=== PATIENT | male | born 1945 | race Caucasian/White ===

== ENCOUNTER 2023-01-17 21:49 | Emergency (ER) | payer OTHER ==
[2023-01-17] MEDS ORDERED: BUPIVACAINE 0.5% PF 10 ML VIAL ONE (22:16)
[2023-01-17] MEDS ORDERED: AMLODIPINE 10 MG TAB ONE (22:16)
[2023-01-17] MEDS ORDERED: LIDOCAINE 1% 20 ML MDV ONE (22:17)
--- NOTE | 2023-01-17 22:51 | RAD REPORT ---
EXAM DESCRIPTION: CT - [id number] - 01/17/2023 10:41 pm CLINICAL HISTORY: Trauma, head and neck injury. TRAUMA COMPARISON: No comparisons TECHNIQUE: Axial 5 mm thick images of the head were obtained. Axial 2 mm thick images of the cervical spine were obtained with sagittal and coronal reconstruction images generated and reviewed. All CT scans are performed using dose optimization technique as appropriate and may include automated exposure control or mA/KV adjustment according to patient size. FINDINGS: CT HEAD WITHOUT CONTRAST: No acute hemorrhage, hydrocephalus or extra-axial collection is identified.No areas of brain edema or midline shift. Chronic small vessel ischemic changes which are mild to moderate. The paranasal sinuses and mastoids are clear.The calvarium is intact. CT CERVICAL SPINE WITHOUT CONTRAST: No fracture or subluxation.No prevertebral soft tissues swelling is identified. Multilevel degenerati ve changes are present in the spine. Varying degrees of neural foraminal narrowing noted. IMPRESSION: No acute intracranial or cervical spine findings.
--- NOTE | 2023-01-18 00:35 | ER ---
Nurse's Notes [facility] Name: Salvador Dorado Jr Age: 77 yrs Sex: Male : 1945 Arrival Date: 01/17/2023 Time: 21:49 Bed 4 Private MD: Diagnosis: Fall on same level from slipping, tripping and stumbling with subsequent striking against object;Unspecified injury of head, initial encounter;Laceration without foreign body of other part of head Presentation: 01/17 22:10 Chief complaint: Patient states: I was bending over to pick something up and kept vc1 going. I hit my head on the edge of the concrete. Coronavirus screen: Vaccine status: Patient reports receiving the 2nd dose of the covid vaccine. Moderna Client denies travel out of the [place] in the last 14 days. At this time, the client does not indicate any symptoms associated with coronavirus-19. Ebola Screen: Patient negative for fever greater than or equal to 101.5 degrees Fahrenheit, and additional compatible Ebola Virus Disease symptoms Patient denies exposure to infectious person. Patient denies travel to an Ebola-affected area in the 21 days before illness onset. No symptoms or risks identified at this time. Initial Sepsis Screen: Does the patient meet any 2 criteria? No. Patient's initial sepsis screen is negative. Does the patient have a suspected source of infection? No. Patient's initial sepsis screen is negative. Risk Assessment: Do you want to hurt yourself or someone else? Patient reports no desire to harm self or others. Onset of symptoms was January 17, 2023. Care prior to arrival: None. Activity prior to arrival: None. Mechanism of Injury: Fall bending over and kept going. Transition of care: patient was not received from another setting of care. 22:10 Method Of Arrival: Ambulatory vc1 22:10 Acuity: IRA 2 vc1 Triage Assessment: 22:14 General: Appears in no apparent distress. uncomfortable, Behavior is calm, cooperative, vc1 appropriate for age. Pain: Complains of pain in right side of forehead Pain does not radiate. Pain currently is 3 out of 10 on a pain scale. Noted to be grimacing. EENT: No deficits noted. No signs and/or symptoms were reported regarding the EENT system. Neuro: Level of Consciousness is awake, alert, obeys commands, Oriented to person, place, time, situation, Appropriate for age. Cardiovascular: No deficits noted. Respiratory: Airway is patent Respiratory effort is even, unlabored, Respiratory pattern is regular, symmetrical. GI: No deficits noted. No signs and/or symptoms were reported involving the gastrointestinal system. : No deficits noted. No signs and/or symptoms were reported regarding the genitourinary system. Derm: Wound noted right side of forehead. Musculoskeletal: No deficits noted. No signs and/or symptoms reported regarding the musculoskeletal system. Injury Description: Laceration sustained to right side of forehead is contaminated, jagged, 2.6 to 7.5 cm long, not bleeding. Historical: - Allergies: 22:12 Demerol; vc1 22:12 Celebrex; vc1 22:12 Codeine; vc1 - Home Meds: 22:12 amlodipine oral [Active]; vc1 - PMHx: 22:12 Hypertensive disorder; vc1 - PSHx: 22:12 None; vc1 - Immunization history:: Client reports receiving the 2nd dose of the Covid vaccine, Last tetanus immunization: up to date. - Social history:: Smoking status: Patient denies any tobacco usage or history of. Screenin:15 Abuse screen: Denies threats or abuse. Nutritional screening: No deficits noted. vc1 Tuberculosis screening: No symptoms or risk factors identified. 22:30 [facility] ED Fall Risk Assessment (Adult) History of falling in the last 3 months, jw7 including since admission Yes- single mechanical fall (1 pt) Confusion or Disorientation No (0 pts) Intoxicated or Sedated No (0 pts) Impaired Gait Yes (1 pt) Mobility Assist Device Used No (0 pt) Altered Elimination No (0 pt) Score/Fall Risk Level 0 - 2 = Low Risk Oriented to surroundings, Maintained a safe environment, Educated pt \T\ family on fall prevention, incl call for assistance when getting out of bed, Provided non-skid footwear. Assessment: 22:15 General: see triage assessment . jw7 23:30 Reassessment: Patient appears in no apparent distress at this time. No changes from jw7 previously documented assessment. Patient and/or family updated on plan of care and expected duration. Pain level reassessed. Patient is alert, oriented x 3, equal unlabored respirations, skin warm/dry/pink. 11/22 00:27 Reassessment: Patient appears in no apparent distress at this time. No changes from jw7 previously documented assessment. Patient and/or family updated on plan of care and expected duration. Pain level reassessed. Patient is alert, oriented x 3, equal unlabored respirations, skin warm/dry/pink. Vital Signs: 01/17 22:10 BP 206 / 99; Pulse 78; Resp 18; Pulse Ox 99% ; Weight 93.89 kg; Height 5 ft. 9 in. ; vc1 Pain 3/10; 22:59 BP 165 / 83; Pulse 64; Resp 18 S; Pulse Ox 99% on R/A; jw7 01/18 00:00 BP 154 / 89; Pulse 66; Resp 18 S; Pulse Ox 98% on R/A; jw7 01:02 BP 156 / 81; Pulse 63; Resp 17 S; Pulse Ox 99% on R/A; jw7 01/17 22:10 Body Mass Index 30.57 (93.89 kg, 175.26 cm) vc1 01/17 22:10 Pain Scale: Adult vc1 [place] Coma Score: 01/17 21:57 Eye Response: spontaneous(4). Motor Response: obeys commands(6). Verbal Response: snw oriented(5). Total: 15. 01/18 00:36 Eye Response: spontaneous(4). Motor Response: obeys commands(6). Verbal Response: snw oriented(5). Total: 15. ED Course: 01/17 21:55 Patient arrived in ED. snw 21:55 Bulmaro Vargas MD is Attending Physician. snw 21:55 Umm Raman FNP-C is [facility]. snw 22:12 Triage completed. vc1 22:14 Arm band placed on left wrist. vc1 22:15 Patient has correct armband on for positive identification. Bed in low position. Call vc1 light in reach. Pulse ox on. NIBP on. 22:41 CT Head C Spine In Process Unspecified. EDMS 01/18 00:23 Assist provider with laceration repair on forehead that was between 7.6 to 12.5 cm jw7 using sutures. Set up tray. Performed by Umm RAY Patient tolerated well. 01:03 Provided Education on: suture care. jw7 01:03 Patient did not have IV access during this emergency room visit. jw7 Administered Medications: 01/17 22:09 Drug: amLODIPine PO 10 mg PO once Route: PO; vc1 01/18 01:02 Follow up: Response: No adverse reaction jw7 00:38 Drug: Lidocaine Infiltration (1 %) 20 ml 20 ml Infiltration once; to bedside Volume: 20 jw7 ml; Route: Infiltration; 01:01 Follow up: Response: No adverse reaction jw7 00:38 Drug: Bupivacaine Infiltration (0.25 %) 10 ml Infiltration once Route: Infiltration; jw7 01:01 Follow up: Response: No adverse reaction jw7 00:38 Drug: Hibiclens Topical Liquid 4 % 1 application Topical once Route: Topical; Site: jw7 affected area; 01:02 Follow up: Response: No adverse reaction jw7 01:01 Drug: Boostrix Tdap IM 0.5 ml IM once; as a single dose Route: IM; Site: left deltoid; jw7 01:02 Follow up: Response: No adverse reaction jw7 01:01 Drug: Mupirocin Topical Ointment 2 % 1 application Topical once; left knee and forehead jw7 Route: Topical; Site: affected area; 01:02 Follow up: Response: No adverse reaction jw7 Medication: 01/17 22:15 VIS not applicable for this client. vc1 Outcome: 01/18 00:34 Discharge ordered by MD. morales 01:14 Discharged to home ambulatory, with family, jw7 01:14 Condition: stable 01:14 Discharge instructions given to patient, Instructed on discharge instructions, follow up and referral plans. medication usage, Demonstrated understanding of instructions, follow-up care, medications, Prescriptions given X 1, 01:14 Patient left the ED. jw7 Signatures: Dispatcher [employer] EDMS Umm Raman FNP-C FRAME TABLE OPERATOR-Csnw Tia Cartagena RN RN vc1 Marybel Jamil RN RN jw7
--- NOTE | 2023-01-18 00:35 | EDPHYS ---
Physician Documentation [facility] Name: Salvador Dorado Jr Age: 77 yrs Sex: Male : 1945 Arrival Date: 01/17/2023 Time: 21:49 Bed 4 Private MD: ED Physician Bulmaro Vargas HPI: 01/17 21:57 This 77 yrs old Male presents to ER via Unassigned with complaints of fall, face snw laceration. 21:57 The patient or guardian reports injury, a laceration, 6 cm(s), dirty, vertical. The snw complaints affect the right side of forehead. Context of injury: The problem was sustained outdoors, on a street or driveway, resulted from pt states he bent over and kept going, fell to face on side of concrete sidewalk. no LOC. Onset: The symptoms/episode began/occurred suddenly, just prior to arrival. It is unknown whether or not the patient has had similar symptoms in the past. Sees Dr. Lundy, denies taking blood thinners. Historical: - Allergies: 22:12 Demerol; vc1 22:12 Celebrex; vc1 22:12 Codeine; vc1 - Home Meds: 22:12 amlodipine oral [Active]; vc1 - PMHx: 22:12 Hypertensive disorder; vc1 - PSHx: 22:12 None; vc1 - Immunization history:: Client reports receiving the 2nd dose of the Covid vaccine, Last tetanus immunization: up to date. - Social history:: Smoking status: Patient denies any tobacco usage or history of. ROS: 21:57 Constitutional: Negative for fever, chills, and weight loss, Eyes: Negative for injury, snw pain, redness, and discharge, ENT: Negative for injury, pain, and discharge, Neck: Negative for injury, pain, and swelling, Cardiovascular: Negative for chest pain, palpitations, and edema, Respiratory: Negative for shortness of breath, cough, wheezing, and pleuritic chest pain, Abdomen/GI: Negative for abdominal pain, nausea, vomiting, diarrhea, and constipation, Back: Negative for injury and pain, : Negative for injury, bleeding, discharge, and swelling, MS/Extremity: Negative for injury and deformity, 21:57 Psych: Negative for depression, anxiety, suicide ideation, homicidal ideation, and hallucinations, 21:57 Skin: Positive for laceration(s), of the right side of forehead, 21:57 Neuro: Positive for fall, facial laceration, Exam: 22:01 Constitutional: This is a well developed, well nourished patient who is awake, alert, snw and in no acute distress. Eyes: Pupils equal round and reactive to light, extra-ocular motions intact. Lids and lashes normal. Conjunctiva and sclera are non-icteric and not injected. Cornea within normal limits. Periorbital areas with no swelling, redness, or edema. ENT: Nares patent. No nasal discharge, no septal abnormalities noted. Tympanic membranes are normal and external auditory canals are clear. Oropharynx with no redness, swelling, or masses, exudates, or evidence of obstruction, uvula midline. Mucous membranes moist. Neck: Trachea midline, no thyromegaly or masses palpated, and no cervical lymphadenopathy. Supple, full range of motion without nuchal rigidity, or vertebral point tenderness. No Meningismus. Chest/axilla: Normal chest wall appearance and motion. Nontender with no deformity. No lesions are appreciated. Cardiovascular: Regular rate and rhythm with a normal S1 and S2. No gallops, murmurs, or rubs. Normal PMI, no JVD. No pulse deficits. Respiratory: Lungs have equal breath sounds bilaterally, clear to auscultation and percussion. No rales, rhonchi or wheezes noted. No increased work of breathing, no retractions or nasal flaring. Abdomen/GI: Soft, non-tender, with normal bowel sounds. No distension or tympany. No guarding or rebound. No evidence of tenderness throughout. Back: No spinal tenderness. No costovertebral tenderness. Full range of motion. Skin: Warm, dry with normal turgor. Normal color with no rashes, no lesions, and no evidence of cellulitis. MS/ Extremity: Pulses equal, no cyanosis. Neurovascular intact. Full, normal range of motion. Neuro: Awake and alert, GCS 15, oriented to person, place, time, and situation. Cranial nerves II-XII grossly intact. Motor strength 5/5 in all extremities. Sensory grossly intact. Cerebellar exam normal. Normal gait. Psych: Awake, alert, with orientation to person, place and time. Behavior, mood, and affect are within normal limits. 22:01 Head/face: Noted is a laceration(s), that is deep, 6 cm(s), of the right side of forehead, Vital Signs: 22:10 BP 206 / 99; Pulse 78; Resp 18; Pulse Ox 99% ; Weight 93.89 kg; Height 5 ft. 9 in. ; vc1 Pain 3/10; 22:59 BP 165 / 83; Pulse 64; Resp 18 S; Pulse Ox 99% on R/A; jw7 01/18 00:00 BP 154 / 89; Pulse 66; Resp 18 S; Pulse Ox 98% on R/A; jw7 01:02 BP 156 / 81; Pulse 63; Resp 17 S; Pulse Ox 99% on R/A; jw7 01/17 22:10 Body Mass Index 30.57 (93.89 kg, 175.26 cm) vc1 01/17 22:10 Pain Scale: Adult vc1 [place] Coma Score: 01/17 21:57 Eye Response: spontaneous(4). Motor Response: obeys commands(6). Verbal Response: snw oriented(5). Total: 15. 01/18 00:36 Eye Response: spontaneous(4). Motor Response: obeys commands(6). Verbal Response: snw oriented(5). Total: 15. Laceration: 01/17 22:01 Wound Repair of 6cm ( 2.4in ) partial thickness laceration to right side of forehead. snw Linear shaped.. vertical. Distal neuro/vascular/tendon intact. Anesthesia: 5 mls of 0.25% marcaine, Local anesthetic administered with 5 mls of 1% lidocaine. Wound prep: Extensive cleansing with hibiclenz. Skin closed with 6-0 Chromic using simple sutures and sterile technique. Skin closed with 20 6-0 Prolene using simple sutures and sterile technique. Dressed with non-adherent dressing. Patient tolerated well. MDM: 21:55 Patient medically screened. snw 01/18 00:36 Differential diagnosis: Contusion of Hematoma on Laceration of Intracranial bleed- snw Concussion. Data reviewed: vital signs, nurses notes, radiologic studies, CT scan. I considered the following discharge prescriptions or medication management in the emergency department Medications were administered in the Emergency Department. See MAR. Counseling: I had a detailed discussion with the patient and/or guardian regarding the historical points, exam findings, and any diagnostic results supporting the discharge/admit diagnosis, radiology results, the need for outpatient follow up, for definitive care, to return to the emergency department if symptoms worsen or persist or if there are any questions or concerns that arise at home. Response to treatment: the patient's symptoms have markedly improved after treatment. Special discussion: I have referred the patient to see his PCP for further evaluation of high blood pressure. Based on the patient's history, exam and DX evaluation, there is no indication for emergent intervention or inpatient TX. It is understood by the patient/guardian that if the SXs persist or worsen they need to return immediately for re-evaluation. Based on the history and exam findings, there is no indication for further emergent testing or inpatient evaluation. I discussed with the patient/guardian the need to see the primary care provider for further evaluation of the symptoms. 01/17 21:57 Order name: CT Head C Spine; Complete Time: 23:48 snw 01/17 23:48 Interpretation: No acute disease. snw Administered Medications: 01/17 22:09 Drug: amLODIPine PO 10 mg PO once Route: PO; vc1 01/18 01:02 Follow up: Response: No adverse reaction jw7 00:38 Drug: Lidocaine Infiltration (1 %) 20 ml 20 ml Infiltration once; to bedside Volume: 20 jw7 ml; Route: Infiltration; 01:01 Follow up: Response: No adverse reaction jw7 00:38 Drug: Bupivacaine Infiltration (0.25 %) 10 ml Infiltration once Route: Infiltration; jw7 01:01 Follow up: Response: No adverse reaction jw7 00:38 Drug: Hibiclens Topical Liquid 4 % 1 application Topical once Route: Topical; Site: jw7 affected area; 01:02 Follow up: Response: No adverse reaction jw7 01:01 Drug: Boostrix Tdap IM 0.5 ml IM once; as a single dose Route: IM; Site: left deltoid; jw7 01:02 Follow up: Response: No adverse reaction jw7 01:01 Drug: Mupirocin Topical Ointment 2 % 1 application Topical once; left knee and forehead jw7 Route: Topical; Site: affected area; :02 Follow up: Response: No adverse reaction jw7 Disposition: 03:22 Co-signature as Attending Physician, Bulmaro Vargas MD I agree with the assessment sp4 and plan of care. I reviewed the patient's care provided by the Advanced Practice Provider and agree with the diagnosis and treatment plan. Disposition Summary: 01/18/23 00:34 Discharge Ordered Notes: Location: Home snw Condition: Stable snw Diagnosis - Fall on same level from slipping, tripping and stumbling with subsequent striking snw against object - Unspecified injury of head, initial encounter snw - Laceration without foreign body of other part of head snw Followup: snw - With: Emergency Department - When: 1 week - Reason: Staple/Suture removal Followup: snw - With: Private Physician - When: 10 - 14 days - Reason: Recheck today's complaints, Continuance of care, Re-evaluation by your physician Discharge Instructions: - Discharge Summary Sheet snw - Facial or Scalp Contusion snw - Head Injury, Adult snw - Fall Prevention in the Home, Adult snw - Facial Laceration snw Forms: - Medication Reconciliation Form snw - Thank You Letter snw - Antibiotic Education snw - Prescription Opioid Use snw - Patient Portal Instructions snw - Leadership Thank You Letter snw Prescriptions: - Mobic 7.5 mg Oral tablet - take 1 tablet ORAL route once daily As needed take with food; 8 tablet; snw Refills: 0, Product Selection Permitted Signatures: Dispatcher [employer] EDMS Umm Raman FNP-C [place]-Csnw Tia Cartagena RN RN vc1 Marybel Jamil RN RN jw7 Bulmaro Vargas MD MD sp4 Corrections: (The following items were deleted from the chart) 00:33 01/17 22:01 Wound Repair of 6cm ( 2.4in ) partial thickness laceration to right side of snw forehead. Linear shaped.. vertical. Distal neuro/vascular/tendon intact. Anesthesia: 5 mls of 0.25% marcaine, Local anesthetic administered with 5 mls of 1% lidocaine. Wound prep: Extensive cleansing with hibiclenz. Skin closed with 6-0 Prolene using running sutures and sterile technique. Dressed with non-adherent dressing. Patient tolerated well. snw
[2023-01-18] MEDS ORDERED: TDAP (DIPHTH,PERTUSS(ACELL),TET VAC) 0.5 ML VIAL IMVAC ONE (00:50)
[2023-01-18] MEDS ORDERED: MUPIROCIN 2% OINT 22GM TUBE TOP ONE (00:53)
[2023-01-18 01:31] VITALS: BP 156/81; O2SAT 99
== END 2023-01-18 01:14 | disposition home or self-care (01) ==
LOC: ER 21:49
PROC: 0HQ1XZZ Repair Face Skin, External Approach (ICD-10-PCS; principal; 2023-01-18)
DX: S01.81XA Laceration without foreign body of other part of head, initial encounter (principal); W01.10XA Fall on same level from slipping, tripping and stumbling with subsequent striking against unspecified object, initial encounter; Z88.5 Allergy status to narcotic agent; Z88.8 Allergy status to other drugs, medicaments and biological substances
CPT/HCPCS: 70450; 72125; 96372; 99284; 12014; J2001

== ENCOUNTER 2023-01-23 17:35 | Emergency (ER) | payer OTHER ==
--- NOTE | 2023-01-23 18:11 | EDPHYS ---
Physician Documentation [facility] Name: Salvador Dorado Jr Age: 77 yrs Sex: Male : 1945 Arrival Date: 01/23/2023 Time: 17:35 Bed 30 Private MD: Mark Lundy C ED Physician Gabe Vaca HPI: 01/23 18:13 This 77 yrs old Male presents to ER via Ambulatory with complaints of Suture Removal. snw 18:13 The patient has sutures on the right side of forehead. Previous treatment: The patient snw was initially treated the care was rendered at [facility], Treatment type: The patient's original treatment included oral antibiotics, sutures, Outpatient prescription(s): The patient was given prescription(s) for Previous recheck: the patient has not been checked since the original treatment, 20 sutures removed. Sutures/genevieve progress: The patient has no c/o's. The wound is well-healing with no redness, swelling, discharge, or dehiscence reported. The patient has not experienced similar symptoms in the past. The patient has not recently seen a physician. Historical: - Allergies: 17:45 Celebrex; mb9 17:45 Codeine; mb9 17:45 Demerol; mb9 - Home Meds: 17:45 amlodipine oral [Active]; mb9 - PMHx: 17:45 Hypertensive disorder; mb9 - PSHx: 17:45 None; mb9 - Immunization history:: Adult Immunizations up to date. - Social history:: Smoking status: Patient denies any tobacco usage or history of. ROS: 18:11 Constitutional: Negative for fever, chills, and weight loss, Eyes: Negative for injury, snw pain, redness, and discharge, ENT: Negative for injury, pain, and discharge, Neck: Negative for injury, pain, and swelling, Cardiovascular: Negative for chest pain, palpitations, and edema, Respiratory: Negative for shortness of breath, cough, wheezing, and pleuritic chest pain, Abdomen/GI: Negative for abdominal pain, nausea, vomiting, diarrhea, and constipation, Back: Negative for injury and pain, : Negative for injury, bleeding, discharge, and swelling, MS/Extremity: Negative for injury and deformity, Neuro: Negative for headache, weakness, numbness, tingling, and seizure, Psych: Negative for depression, anxiety, suicide ideation, homicidal ideation, and hallucinations, 18:11 Skin: Positive for 20 sutures to vertical forehead laceration need removal, Exam: 18:11 Constitutional: This is a well developed, well nourished patient who is awake, alert, snw and in no acute distress. Eyes: Pupils equal round and reactive to light, extra-ocular motions intact. Lids and lashes normal. Conjunctiva and sclera are non-icteric and not injected. Cornea within normal limits. Periorbital areas with no swelling, redness, or edema. ENT: Nares patent. No nasal discharge, no septal abnormalities noted. Tympanic membranes are normal and external auditory canals are clear. Oropharynx with no redness, swelling, or masses, exudates, or evidence of obstruction, uvula midline. Mucous membranes moist. Neck: Trachea midline, no thyromegaly or masses palpated, and no cervical lymphadenopathy. Supple, full range of motion without nuchal rigidity, or vertebral point tenderness. No Meningismus. Chest/axilla: Normal chest wall appearance and motion. Nontender with no deformity. No lesions are appreciated. Cardiovascular: Regular rate and rhythm with a normal S1 and S2. No gallops, murmurs, or rubs. Normal PMI, no JVD. No pulse deficits. Respiratory: Lungs have equal breath sounds bilaterally, clear to auscultation and percussion. No rales, rhonchi or wheezes noted. No increased work of breathing, no retractions or nasal flaring. Abdomen/GI: Soft, non-tender, with normal bowel sounds. No distension or tympany. No guarding or rebound. No evidence of tenderness throughout. Back: No spinal tenderness. No costovertebral tenderness. Full range of motion. MS/ Extremity: Pulses equal, no cyanosis. Neurovascular intact. Full, normal range of motion. Neuro: Awake and alert, GCS 15, oriented to person, place, time, and situation. Cranial nerves II-XII grossly intact. Motor strength 5/5 in all extremities. Sensory grossly intact. Cerebellar exam normal. Normal gait. Psych: Awake, alert, with orientation to person, place and time. Behavior, mood, and affect are within normal limits. 18:11 Head/face: Noted is sutured wound well approximated, no evidence of infection. 18:11 Skin: Appearance: ecchymosis, that are mild, of the right lower eyelid and left lower eyelid, s/p head injury, resolving, Vital Signs: 17:46 BP 150 / 84; Pulse 84; Resp 18; Temp 98.2; Pulse Ox 100% ; Weight 95 kg; Height 5 ft. 9 mb9 in. ; 17:46 Body Mass Index 30.93 (95.00 kg, 175.26 cm) mb9 Procedures: 18:10 Foreign Body Removal: 20 6-0 sutures removed, pt tolerated well. snw MDM: 17:44 Patient medically screened. snw 18:10 Data reviewed: vital signs, nurses notes. Counseling: I had a detailed discussion with snw the patient and/or guardian regarding the historical points, exam findings, and any diagnostic results supporting the discharge/admit diagnosis, the need for outpatient follow up, for definitive care, to return to the emergency department if symptoms worsen or persist or if there are any questions or concerns that arise at home. Special discussion: Based on the history and exam findings, there is no indication for further emergent testing or inpatient evaluation. I discussed with the patient/guardian the need to see the primary care provider for further evaluation of the symptoms. Administered Medications: No medications were administered Disposition: 18:16 I was immediately available on-site in the Emergency Department for consultation in the ms3 care of the patient. Disposition Summary: 01/23/23 18:10 Discharge Ordered Notes: Location: Home snw Condition: Stable snw Diagnosis - Encounter for removal of sutures snw Followup: snw - With: Emergency Department - When: As needed - Reason: Worsening of condition Followup: snw - With: Mark Lundy MD - When: As needed - Reason: Recheck today's complaints, Continuance of care, Re-evaluation by your physician Discharge Instructions: - Discharge Summary Sheet snw - Nonsutured Laceration Care snw - Suture Removal, Care After snw - Wound Care, Adult snw Forms: - Medication Reconciliation Form snw - Thank You Letter snw - Antibiotic Education snw - Prescription Opioid Use snw - Patient Portal Instructions snw - Leadership Thank You Letter snw Signatures: Umm Raman FNP-C FNP-Gabe Miller DO DO ms3 Breneman, Miriam, RN RN mb9
--- NOTE | 2023-01-23 18:11 | ER ---
Nurse's Notes [facility] Name: Salvador Dorado Jr Age: 77 yrs Sex: Male : 1945 Arrival Date: 01/23/2023 Time: 17:35 Bed 30 Private MD: Mark Lundy C Diagnosis: Encounter for removal of sutures Presentation: 01/23 17:46 Chief complaint: Patient states: "I need my sutures removed that I got placed last week mb9 from my forehead". Coronavirus screen: At this time, the client does not indicate any symptoms associated with coronavirus-19. Ebola Screen: No symptoms or risks identified at this time. Initial Sepsis Screen: Does the patient meet any 2 criteria? No. Patient's initial sepsis screen is negative. Does the patient have a suspected source of infection? No. Patient's initial sepsis screen is negative. Risk Assessment: Do you want to hurt yourself or someone else? Patient reports no desire to harm self or others. Onset of symptoms was January 23, 2023. 17:46 Acuity: IRA 4 mb9 17:46 Method Of Arrival: Ambulatory mb9 Triage Assessment: 17:47 General: Appears in no apparent distress. Behavior is calm, cooperative. Pain: Denies mb9 pain. EENT: No signs and/or symptoms were reported regarding the EENT system. Neuro: [place] Agitation-Sedation Scale (RASS): 0 - Alert and Calm Level of Consciousness is awake, alert, obeys commands, Oriented to person, place, time, situation, Appropriate for age. Cardiovascular: Patient's skin is warm and dry. Respiratory: Airway is patent Respiratory effort is even, unlabored, Respiratory pattern is regular, symmetrical. GI: No signs and/or symptoms were reported involving the gastrointestinal system. : No signs and/or symptoms were reported regarding the genitourinary system. Derm: Skin is pink, warm \\T\\ dry. Derm: sutures noted to forehead. Musculoskeletal: Range of motion: intact in all extremities. Historical: - Allergies: 17:45 Celebrex; mb9 17:45 Codeine; mb9 17:45 Demerol; mb9 - Home Meds: 17:45 amlodipine oral [Active]; mb9 - PMHx: 17:45 Hypertensive disorder; mb9 - PSHx: 17:45 None; mb9 - Immunization history:: Adult Immunizations up to date. - Social history:: Smoking status: Patient denies any tobacco usage or history of. Screenin:02 [facility] ED Fall Risk Assessment (Adult) History of falling in the last 3 months, mb9 including since admission Yes- single mechanical fall (1 pt) Confusion or Disorientation No (0 pts) Intoxicated or Sedated No (0 pts) Impaired Gait No (0 pts) Mobility Assist Device Used No (0 pt) Altered Elimination No (0 pt) Score/Fall Risk Level 0 - 2 = Low Risk Oriented to surroundings, Maintained a safe environment, Educated pt \\T\\ family on fall prevention, incl call for assistance when getting out of bed. Abuse screen: Denies threats or abuse. Nutritional screening: No deficits noted. Tuberculosis screening: No symptoms or risk factors identified. Assessment: 18:12 Reassessment: No changes from previously documented assessment. Patient and/or family mb9 updated on plan of care and expected duration. Pain level reassessed. Patient is alert, oriented x 3, equal unlabored respirations, skin warm/dry/pink. Vital Signs: 17:46 BP 150 / 84; Pulse 84; Resp 18; Temp 98.2; Pulse Ox 100% ; Weight 95 kg; Height 5 ft. 9 mb9 in. ; 17:46 Body Mass Index 30.93 (95.00 kg, 175.26 cm) mb9 ED Course: 17:36 Patient arrived in ED. mr 17:37 Mark Lundy MD is Private Physician. mr 17:40 [facility]C [facility] snw 17:40 Gabe Vaca DO is Attending Physician. snw 17:45 Arm band placed on. mb9 17:47 Triage completed. mb9 17:53 Jeannie Cabrera RN is Primary Nurse. mb9 18:02 Placed in gown. Bed in low position. Call light in reach. Side rails up X 1. Client mb9 placed on continuous cardiac and pulse oximetry monitoring. NIBP monitoring applied. 18:02 laceration removal. Patient did not have IV access during this emergency room visit. mb9 18:09 Mark Lundy MD is Referral Physician. snw Administered Medications: No medications were administered Medication: 18:02 VIS not applicable for this client. mb9 Outcome: 18:10 Discharge ordered by MD. morales 18:12 Discharged to home ambulatory, with family, ryann 18:12 Condition: stable 18:12 Discharge instructions given to patient, family, Instructed on discharge instructions, follow up and referral plans. Demonstrated understanding of instructions, follow-up care, 18:12 Patient left the ED. mb9 Signatures: Umm Raman, TIPPLE REPAIRER-C TIPPLE REPAIRER-Csnw Jeannie Olvera, Ayan Reg mr Cabrera, Jeannie Montero, RN RN mb9
[2023-01-23 18:45] VITALS: BP 150/84; TEMP 98.2; O2SAT 100
== END 2023-01-23 18:12 | disposition home or self-care (01) ==
LOC: ER 17:35
DX: Z48.02 Encounter for removal of sutures (principal); I10 Essential (primary) hypertension
CPT/HCPCS: 99283